=== PATIENT | male | born 1980 | race Hispanic/Latino ===

== ENCOUNTER 2022-10-25 20:41 | Emergency (ER) | payer SELFPAY ==
[2022-10-25] MEDS ORDERED: Boostrix 0.5 ML (Tdap) VIAL (>/=7 yrs of age) ONE (21:38)
[2022-10-25] MEDS ORDERED: HYDROcodone/Acetaminophen 5/325 mg Tablet ONE (21:54)
[2022-10-25] MEDS ORDERED: Lidocaine 1% PF 5 ML VIAL ONE (22:02)
[2022-10-25] MEDS ORDERED: Bacitracin 1 PK ONE (22:58)
== END 2022-10-25 23:02 | disposition home or self-care (01) ==
LOC: ERS 20:41
DX: S61.310A Laceration without foreign body of right index finger with damage to nail, initial encounter (principal); W26.9XXA Contact with unspecified sharp object(s), initial encounter; Z23 Encounter for immunization
CPT/HCPCS: 12002; 90471; 90715